=== PATIENT | female | born 1965 | race Two or more races ===

== ENCOUNTER → 2016-10-02 | Outpatient (CLI) | payer SELFPAY ==
--- NOTE | 2016-10-02 09:53 | RADRPT ---
EXAM DATE/TIME: 10/02/2016 09:10 [facility] COMPARISON: No previous studies available for comparison. INDICATIONS : Left foot pain with no known injury MEDICAL HISTORY : None. SURGICAL HISTORY : None. ENCOUNTER: Initial ACUITY: 1 year PAIN SCORE: 7/10 LOCATION: Left plantar foot FINDINGS: Three view examination of the left foot demonstrates no soft tissue swelling, dislocation, or fractur e. The tarsal bones appear intact. The interphalangeal and metatarsophalangeal joints are intact. The calcaneus is intact. Bony mineralization is normal. CONCLUSION: 1. Minimal degenerative changes in the metatarsal phalangeal joint of the first digit. No acute bony abnormality identified. Larry Wang MD on October 02, 2016 at 9:50 Board Certified Radiologist. This report was verified electronically.
--- NOTE | 2016-10-02 09:54 | RADRPT ---
EXAM DATE/TIME: 10/02/2016 09:11 [facility] COMPARISON: FOOT LEFT COMPLETE ([id number]), October 02, 2016, 9:10. INDICATIONS : Right foot pain with no known injury MEDICAL HISTORY : None. SURGICAL HISTORY : None. ENCOUNTER: Initial ACUITY: 1 year PAIN SCORE: 7/10 LOCATION: Right plantar foot FINDINGS: The examination demonstrates mild bunion deformity with mild degenerative changes in the metatarsal p halangeal joint of the first digit. The bony mineralization is normal. No acute fractures identified. Alignment is adequate. CONCLUSION: Mild bunion deformity. No acute abnormality. Larry Wang MD on October 02, 2016 at 9:51 Board Certified Radiologist. This report was verified electronically.
== END ==
LOC: HRAD 08:50
PROVIDERS: ATTEND Internal Medicine
DX: M79.672 Pain in left foot (principal); M79.671 Pain in right foot
CPT/HCPCS: 73630